=== PATIENT | male | born 1995 | race Caucasian/White ===

== ENCOUNTER 2021-07-15 18:00 | Emergency (ER) | payer SELFPAY ==
[~2021-07-15] VITALS: Ht 177.8 cm; Wt 94.6 kg
[~2021-07-15 18:00] MED LIST: NO HOME MEDICATIONS
[2021-07-15 18:23] VITALS: BP 137/81; PULSE 103; TEMP 98.2
[2021-07-15] MEDS ORDERED: ILOTYCIN5 MG/GM OP (19:46)
== END 2021-07-15 20:00 | disposition home or self-care (01) ==
LOC: COL.ER 18:00
DX: S00.211A Abrasion of right eyelid and periocular area, initial encounter (principal); X58.XXXA Exposure to other specified factors, initial encounter

== ENCOUNTER 2024-06-08 09:50 | Observation (INO) | payer SELFPAY ==
[~2024-06-08] VITALS: Ht 177.8 cm; Wt 95.2 kg
[2024-06-08] VITALS (9 sets, daily range): BP systolic 120–157; BP diastolic 67–90; PULSE 57–75; TEMP 97.6–98.6
--- NOTE | 2024-06-08 09:30 | NUR ---
pt admitted to room by EMS. pt a&[id number] ambulated to room. denies pain. vss. med rec and admission assessment complete. pt npo for surgery this afternoon. pt admitted with IV to right forearm. pt denies needs at this time. call light in reach.
[~2024-06-08 09:50] MED LIST changes: +ILOTYCIN5 MG/GM OP; +LR 1,000 ML IV SCH
[2024-06-08] MEDS ORDERED: NS 1,000 ML IV SCH (10:00)
[2024-06-08] MEDS ORDERED: diphenhydrAMINE 25 MG CAP PO PRN (10:00)
[2024-06-08] MEDS ORDERED: Morphine PCA 1 MG/ML 30 ML SYRINGE IV SCH (10:00)
[2024-06-08] MEDS ORDERED: diphenhydrAMINE 50 MG/ML 1 ML VIAL IV PRN (10:00)
[2024-06-08] MEDS ORDERED: Ondansetron 4 MG/2 ML VIAL IV PRN ×3 (10:00→17:00)
[2024-06-08] MEDS ORDERED: Naloxone 0.4 MG/ML VIAL IV PRN ×3 (10:00→17:00)
[2024-06-08] MEDS ORDERED: Morphine 4 MG/ML VIAL IV PRN (11:45)
--- NOTE | 2024-06-08 15:50 | NUR ---
pt off floor for procedure
[2024-06-08] MEDS ORDERED: Ondansetron 4 MG/2 ML VIAL ONE (15:52)
[2024-06-08] MEDS ORDERED: fentaNYL 50 MCG/ML 2 ML VIAL ONE (15:52)
[2024-06-08] MEDS ORDERED: NS 10 ML IV ONE (15:52)
[2024-06-08] MEDS ORDERED: Lidocaine PF 2% (20 MG/ML) 5 ML VIAL ONE (15:52)
[2024-06-08] MEDS ORDERED: fentaNYL 50 MCG/ML 1 ML SYRINGE/VIAL [PACU/SDC ONLY] IV PRN (16:15)
[2024-06-08] MEDS ORDERED: HYDROmorphone 1 MG/1 ML SYRINGE [PACU/SDC ONLY] IV PRN (16:15)
[2024-06-08] MEDS ORDERED: Ketorolac 15 MG/ML VIAL IV PRN (16:15)
[2024-06-08] MEDS ORDERED: droPERidol 2.5 MG/ML 2 ML VIAL IV PRN (16:15)
[2024-06-08] MEDS ORDERED: hydrALAZINE 20 MG/ML 1 ML VIAL IV PRN (16:15)
[2024-06-08] MEDS ORDERED: Meperidine 50 MG/ML 1 ML VIAL IV PRN (16:15)
[2024-06-08] MEDS ORDERED: Morphine 2 MG/1 ML VIAL [PACU/SDC ONLY] IV PRN (16:15)
[2024-06-08] MEDS ORDERED: Iohexol 300 - 10 ML VIAL URETER -L ONE (16:30)
[2024-06-08] MEDS ORDERED: Lidocaine 2% (20 MG/ML) 20 ML UROJET UR ONE ×2 (16:38→16:46)
[2024-06-08] MEDS ORDERED: Acetaminophen 325 MG TAB PO PRN (17:00)
[2024-06-08] MEDS ORDERED: Hyoscyamine 0.125 MG Sublingual TAB SL PRN (17:00)
--- NOTE | 2024-06-08 18:36 | NUR ---
INT discontinued. discharge instructions given to pt, all questions answered.
--- NOTE | 2024-06-08 18:55 | NUR ---
pt escorted to personal vehicle.
[2024-06-08] MEDS ORDERED: Sennosides/Docusate 8.6-50 MG TAB PO SCH (21:00)
== END 2024-06-08 18:56 | disposition home or self-care (01) ==
LOC: SURG 09:50 → SDCO 09:50 → SURG 10:03
PROVIDERS: ADMIT Urology
DX: N20.1 Calculus of ureter (principal)
CPT/HCPCS: C1769; C2617; J0690; J2405; J2704; J3010; J7030; Q9967